=== PATIENT | female | born 1975 | race Two or more races ===

== ENCOUNTER 2017-01-28 12:08 | Inpatient (IN) | payer OTHER ==
[2017-01-28] MEDS ORDERED: ELECTROLYTE-148 SOLN 1,000 ML IV ONE (12:10)
[2017-01-28] MEDS ORDERED: CITRIC ACID/SODIUM CITRATE 30 ML UNIT-DOSE CUP PO ONE (12:10)
[2017-01-28] MEDS ORDERED: ELECTROLYTE-148 SOLN 1,000 ML IV SCH (13:10)
[2017-01-28 13:17] VITALS: BMI 29.0
--- NOTE | 2017-01-28 14:40 | HP ---
[id number] Chief Complaint: 39.2 weeks, previous c/s . ama , request of repeat c/ s History of Present Illness: 41 yo f [id number] with previous c/s requesting repeat c/s , rba discussed ,cx clp vx -3 mi, fhr cat 1 History Source: Patient Limitations to Obtaining History: Language Barrier - Past Medical History ...: 4 ...Para: 1 ...Term: 1 ...: 0 ...Spon : 1 ...Induced : 1 ...Multiple Gestation: 0 ...LMP: 04/28/16 ... Weeks Gestation by Dates: 39.2 ...EDC by Dates: 02/02/17 ...EDC by Sono: 02/02/17 - Past Surgical History Past Surgical History: Yes: Hx Myomectomy: No Hx Transabdominal Cerclage: No - Smoking History Smoking history: Never smoked Have you smoked in the past 12 months: No - Alcohol/Substance Use Hx Alcohol Use: No - Social History Usual Living Arrangement: Yes: With Spouse History of Recent Travel: No Home Medications - Allergies Allergies/Adverse Reactions: Allergies Allergy/AdvReac Type Severity Reaction Status Date / Time No Known Drug Allergies Allergy Verified 01/28/17 12:58 - Home Medications Home Medications: Ambulatory Orders Ferrous Sulfate 1 tab PO DAILY 01/28/17 Vit/Iron Fumarate/FA [ Tablet] 1 tab PO DAILY 01/28/17 Ibuprofen [Motrin -] 600 mg PO QID #28 tablet 01/31/17 Review of Systems - Review of Systems Constitutional: reports: No Symptoms Eyes: reports: No Symptoms HENT: reports: No Symptoms Neck: reports: No Symptoms Cardiovascular: reports: No Symptoms Respiratory: reports: No Symptoms Gastrointestinal: reports: No Symptoms Genitourinary: reports: No Symptoms Breasts: reports: No Symptoms Reported Musculoskeletal: reports: No Symptoms Integumentary: reports: No Symptoms Neurological: reports: No Symptoms Endocrine: reports: No Symptoms Hematology/Lymphatic: reports: No Symptoms Psychiatric: reports: No Symptoms Physical Exam - Maternity Vital Signs: Vital Signs Temperature 97.4 F L 01/28/17 12:08 Pulse Rate Respiratory Rate Blood Pressure O2 Sat by Pulse Oximetry (%) Constitutional: Yes: Well Nourished, No Distress, Calm Eyes: Yes: WNL, Conjunctiva Clear, EOM Intact HENT: Yes: WNL, Atraumatic, Normocephalic Neck: Yes: WNL, Supple, Trachea Midline Cardiovascular: Yes: WNL, Regular Rate and Rhythm Breast(s): Yes: WNL - Abdominal Exam/OB Fundal Height: 40 Number of Fetuses: Single Presentation: Vertex Contractions: No Intensity: Unaware Monitor Mode: External Heart Rate Location: [facility] Category: I Accelerations: Uniform Decelerations: None - Vaginal Exam/OB Vaginal Bleediing: No Speculum Exam: No Dilatation (cm): closed Effacement (%): 0 Amniotic Membrane Status: Intact Presentation: Vertex/Position Station: -3 - Physical Exam Edema: Yes Edema: LUE: Trace, LLE: Trace, RLE: Trace Deep Tendon Reflex Grade: Normal +2 Psychiatric: Yes: WNL Hemorrhage Risk Assessment - Risk Factors Medium Risk Factors: Yes: Prior , uterine surgery,or multiple laparotomies Risk Score: 1 Risk Level: Medium Risk Problem List - Problems (1) with 39 completed weeks gestation Code(s): Z3A.39 - 39 WEEKS GESTATION OF (2) Previous section Code(s): Z98.891 - HISTORY OF UTERINE SCAR FROM PREVIOUS SURGERY (3) Advanced maternal age (AMA) in Code(s): GZG3068 - Assessment/Plan repeat c/s rba discussed
[2017-01-28] MEDS ORDERED: IBUPROFEN 800 MG/8 ML IJ IVPB PRN ×2 (15:22→15:23)
[2017-01-28] MEDS ORDERED: METHYLERGONOVINE MALEATE 0.2 MG/1 ML AMP IM PRN (15:23)
[2017-01-28] MEDS ORDERED: WITCH HAZEL 50% (TUCKS) 40 PAD/JAR PAD TP PRN (15:23)
[2017-01-28] MEDS ORDERED: BENZOCAINE 20% 57 GM BOTTLE TP PRN (15:23)
[2017-01-28] MEDS ORDERED: BENZOCAINE 28 GM HEMORRHOIDAL OINTMENT PR PRN (15:23)
[2017-01-28] MEDS ORDERED: diphenhydrAMINE HCL 25 MG CAPSULE (FP) PO PRN (15:23)
[2017-01-28] MEDS ORDERED: OXYTOCIN 20 UNITS in 0.9% NS 1,000 ML IV SCH (15:30)
[2017-01-28] MEDS: CEFAZOLIN (PRE-DOCKED) 50 ML IVPB SCH (17:47)
[2017-01-28] MEDS: DEXTROSE 5%-LACTATED RINGERS 1,000 ML IV SCH (23:58)
[2017-01-29] MEDS: CEFAZOLIN (PRE-DOCKED) 50 ML IVPB SCH (01:52)
[2017-01-29] MEDS: DEXTROSE 5%-LACTATED RINGERS 1,000 ML IV SCH (06:05)
[2017-01-29 08:37] LABS: BASOPHIL 0.2 % (0-2.0); EOSINOPHIL 0.8 % (0-4.5); MCH 32.7 pg (25.7-33.7); MCHC 34.2 g/dl (32.0-36.0); MEAN CELL VOLUME 95.8 fl (80-96); MEAN PLT VOLUME 8.7 fl (7.5-11.1); NEUTROPHILS 77.4 % (42.8-82.8); PLATELET COUNT 158 K/MM3 (134-434); RDW 14.9 % (11.6-15.6); WHITE BLOOD COUNT 10.9 K/mm3 (4.0-10.0)
--- NOTE | 2017-01-29 09:16 | PN ---
Progress Note (short form) - Note Progress Note: pod 1 doing well, no c/o , urine clear in hogan bag, adequate out put CBC, BMP 01/29/17 07:50 Last Vital Signs Temp Pulse Resp BP Pulse Ox 98.4 F 99 H 18 117/77 100 01/29/17 09:12 01/29/17 09:12 01/29/17 09:12 01/29/17 09:12 01/28/17 16:15 abdomen soft, no distension, no cva incision dressing dry no excess vaginal bleeding or discharge no calf tenderness impression pod 1 afebrile,, urine claer plan ambulate, advance diet , pain management Problem List - Problems (1) with 39 completed weeks gestation Code(s): Z3A.39 - 39 WEEKS GESTATION OF (2) Previous section Code(s): Z98.891 - HISTORY OF UTERINE SCAR FROM PREVIOUS SURGERY (3) Advanced maternal age (AMA) in Code(s): BBZ4176 -
[2017-01-29] MEDS: ENOXAPARIN NA (PORCINE) 40 MG/0.4 ML DISP.SYRIN SQ SCH (09:59)
--- NOTE | 2017-01-29 11:57 | PN ---
Progress Note (short form) - Note Progress Note: Anesthesia POD#1 Repeat under spinal & duramorph Did well,no N/V,no pain,moving extremities well. VSS No complications seen. Ce Dunn MD.
[2017-01-29] MEDS: SIMETHICONE 80 MG TAB.CHEW (FP) PO PRN ×3 (13:03→23:49)
[2017-01-29] MEDS: IBUPROFEN 600 MG TABLET (FP) PO PRN ×2 (13:03→17:20)
[2017-01-29] MEDS: ACETAMINOPHEN 325 MG TABLET (FP) PO PRN ×3 (13:04→23:49)
[2017-01-29] MEDS ORDERED: BISACODYL 10 MG SUPP.RECT RC PRN (15:23)
--- NOTE | 2017-01-29 15:51 | OP ---
DATE OF OPERATION: 01/28/2017 PROCEDURE: Repeat low-segment transverse section. PREOPERATIVE DIAGNOSIS: , 39 weeks, previous , advanced maternal age. Request of repeat . POSTOPERATIVE DIAGNOSIS: , 39 weeks, previous , advanced maternal age. Request of repeat . SURGEON: Bebe Dunn MD OFFICE TECHNICIAN: ANGELA Womack ANESTHESIA: Spinal. ANESTHESIOLOGIST: Luciana Baez MD ESTIMATED BLOOD LOSS: 500 mL. OPERATION: Patient was taken to the operating room. After adequate spinal anesthesia, abdomen and perineum was prepped and draped. A Pfannenstiel abdominal skin incision was made. Abdominal wall was cut layer by layer until peritoneum was exposed and incised. Upon entering the abdominal cavity, the lower uterine segment was identified, the uterovesical fold of the peritoneum established. Bladder was pushed down. With the lower blade of the Hayward retractor in the pelvis, a low transverse uterine incision was made. The incision extended laterally with bandage scissor. Amniotic sac was entered, clear fluid, head delivered. Nasopharynx was suctioned, and a live baby was delivered without any difficulty. Placenta was delivered manually. Uterine cavity was cleaned of all remaining tissue. Uterine incision was closed in 2 layers, first layer with 0 Biosyn continuous suture, the second layer with 0 Biosyn imbricating the first layer. Bladder flap was closed with 0 Biosyn continuous suture. Both tubes and ovaries were checked, were normal. No active bleeding was seen. Pelvic cavity several times irrigated. No active bleeding was seen. The urine was blood-tinged. Bladder was checked. There was a clear suture line. Then, the peritoneum was closed with 0 Biosyn continuous suture. Muscles brought together with interrupted sutures of 0 Biosyn. Fascia was closed with 0-Biosyn continuous suture, subcutaneous fat interrupted suture of 0 Biosyn, and the skin was closed with cliff. Postoperative, the urine was clear in the Melissa tube. Patient tolerated the procedure well, left the OR in good condition. BEBE DUNN M.D. [id number]
[2017-01-29] MEDS: oxyCODONE HCL 5 MG TABLET PO PRN ×2 (20:02→23:50)
[2017-01-30] MEDS: IBUPROFEN 600 MG TABLET (FP) PO PRN ×3 (02:25→19:32)
--- NOTE | 2017-01-30 09:11 | PN ---
Progress Note (short form) - Note Progress Note: pod 2 doing well voids ok, CBC, BMP 01/29/17 07:50 Last Vital Signs Temp Pulse Resp BP Pulse Ox 98.7 F 98 H 18 126/78 100 01/29/17 22:00 01/29/17 22:00 01/29/17 22:00 01/29/17 22:00 01/28/17 16:15 abdomen soft, no distension, no cva incision dry. clean no calf tenderness plan ambulate, cbc in am Problem List - Problems (1) with 39 completed weeks gestation Code(s): Z3A.39 - 39 WEEKS GESTATION OF (2) Previous section Code(s): Z98.891 - HISTORY OF UTERINE SCAR FROM PREVIOUS SURGERY (3) Advanced maternal age (AMA) in Code(s): [id number] -
[2017-01-30] MEDS: ENOXAPARIN NA (PORCINE) 40 MG/0.4 ML DISP.SYRIN SQ SCH (11:21)
[2017-01-30] MEDS: FERROUS SO4 325 MG TABLET (FP) PO SCH (11:22)
[2017-01-30] MEDS: PRENATAL VITAMINS W/ FOLIC ACID TABLET (FP) PO SCH (11:23)
[2017-01-30] MEDS: ACETAMINOPHEN 325 MG TABLET (FP) PO PRN ×2 (11:24→19:31)
[2017-01-30] MEDS: SIMETHICONE 80 MG TAB.CHEW (FP) PO PRN ×2 (11:24→19:32)
[2017-01-30] MEDS: oxyCODONE HCL 5 MG TABLET PO PRN (21:07)
[2017-01-30] MEDS: SENNOSIDES/DOCUSATE COMBO (SENNA PLUS) TABLET (UD) PO PRN (21:08)
[2017-01-31] MEDS: SIMETHICONE 80 MG TAB.CHEW (FP) PO PRN ×2 (06:07→20:18)
[2017-01-31] MEDS: IBUPROFEN 600 MG TABLET (FP) PO PRN (06:07)
[2017-01-31] MEDS: oxyCODONE HCL 5 MG TABLET PO PRN ×2 (06:08→20:18)
--- NOTE | 2017-01-31 06:50 | PN ---
Post Progress Note Post Day: 3 Type of Delivery: Repeat C/S Vital Signs: Vital Signs Temperature 98.3 F 01/30/17 21:17 Pulse Rate 108 H 01/30/17 21:17 Respiratory Rate 18 01/30/17 21:17 Blood Pressure 135/77 01/30/17 21:17 O2 Sat by Pulse Oximetry (%) 100 01/28/17 16:15 Breast Exam: Yes: Soft Uterus: Yes: Fundus Firm Incision: Yes: Beverly intact Abdomen/GI: Yes: Abdomen soft Lochia: Yes: Rubra Lochia, amount: Small Extremities: Yes: Calves non-tender Perineum: Yes: Intact - Labs Labs: CBC WBC 10.9 K/mm3 (4.0-10.0) H D 01/29/17 07:50 RBC 3.39 M/mm3 (3.60-5.2) L 01/29/17 07:50 Hgb 11.1 GM/dL (10.7-15.3) 01/29/17 07:50 Hct 32.5 % (32.4-45.2) 01/29/17 07:50 MCV 95.8 fl (80-96) 01/29/17 07:50 MCHC 34.2 g/dl (32.0-36.0) 01/29/17 07:50 RDW 14.9 % (11.6-15.6) 01/29/17 07:50 Plt Count 158 K/MM3 (134-434) 01/29/17 07:50 MPV 8.7 fl (7.5-11.1) 01/29/17 07:50 Neutrophils % 77.4 % (42.8-82.8) D 01/29/17 07:50 Lymphocytes % 14.9 % (8-40) D 01/29/17 07:50 Monocytes % 6.7 % (3.8-10.2) 01/29/17 07:50 Eosinophils % 0.8 % (0-4.5) 01/29/17 07:50 Basophils % 0.2 % (0-2.0) 01/29/17 07:50 Assessment/Plan as above oob reg diet stable
[2017-01-31 08:17] LABS: BASOPHIL 0.2 % (0-2.0); EOSINOPHIL 0.9 % (0-4.5); MCH 32.9 pg (25.7-33.7); MCHC 34.2 g/dl (32.0-36.0); MEAN CELL VOLUME 96.3 fl (80-96); MEAN PLT VOLUME 8.2 fl (7.5-11.1); NEUTROPHILS 70.5 % (42.8-82.8); PLATELET COUNT 174 K/MM3 (134-434); RDW 15.2 % (11.6-15.6); WHITE BLOOD COUNT 10.2 K/mm3 (4.0-10.0)
[2017-01-31] MEDS: ENOXAPARIN NA (PORCINE) 40 MG/0.4 ML DISP.SYRIN SQ SCH (09:47)
[2017-01-31] MEDS: FERROUS SO4 325 MG TABLET (FP) PO SCH (09:47)
[2017-01-31] MEDS: PRENATAL VITAMINS W/ FOLIC ACID TABLET (FP) PO SCH (09:47)
[2017-01-31] MEDS: ACETAMINOPHEN 325 MG TABLET (FP) PO PRN ×2 (09:48→20:20)
[2017-01-31] MEDS ORDERED: oxyCODONE HCL 5 MG TABLET PO PRN (19:18)
[2017-01-31] MEDS: SENNOSIDES/DOCUSATE COMBO (SENNA PLUS) TABLET (UD) PO PRN (20:19)
[2017-01-31 22:55] VITALS: PULSE 89
[2017-02-01] MEDS: SIMETHICONE 80 MG TAB.CHEW (FP) PO PRN (03:08)
[2017-02-01] MEDS: oxyCODONE HCL 5 MG TABLET PO PRN ×2 (03:09→09:33)
[2017-02-01] MEDS: ACETAMINOPHEN 325 MG TABLET (FP) PO PRN ×2 (03:09→09:34)
[2017-02-01] MEDS: IBUPROFEN 600 MG TABLET (FP) PO PRN (04:33)
--- NOTE | 2017-02-01 08:08 | DS ---
Physical Exam-CONSULTING SYSTEMS ENGINEER Vital Signs: Vital Signs Temperature 98.3 F 01/31/17 22:00 Pulse Rate 89 01/31/17 22:00 Respiratory Rate 18 01/31/17 22:00 Blood Pressure 130/82 01/31/17 22:00 O2 Sat by Pulse Oximetry (%) 100 01/28/17 16:15 Constitutional: Yes: Well Nourished, No Distress, Calm Eyes: Yes: WNL, Conjunctiva Clear, EOM Intact HENT: Yes: WNL, Atraumatic, Normocephalic Neck: Yes: WNL, Supple, Trachea Midline Cardiovascular: Yes: WNL, Regular Rate and Rhythm Respiratory: Yes: WNL, Regular, CTA Bilaterally Gastrointestinal: Yes: WNL ...Rectal Exam: Yes: WNL Renal/: Yes: WNL Breast(s): Yes: WNL Musculoskeletal: Yes: WNL Extremities: Yes: WNL Integumentary: Yes: WNL Wound/Incision: Yes: Clean/Dry, Well Approximated, [place] Removed Neurological: Yes: WNL, Alert, Oriented ...Motor Strength: WNL Psychiatric: Yes: WNL, Alert, Oriented Labs: CBC, BMP 01/31/17 07:30 Delivery - Delivery Section: Repeat, Low Flap Transverse (no complication) Type of Anesthesia: Spinal EBL (cc): 500 Delivery, Single - Stages of Labor Date of Delivery: 01/28/17 Time of Delivery: 14:50 Time Placenta Delivered: 14:51 Placenta: Yes: Manual Removal - Condition of Thaw Shed Heater Tender/Time Recorder Present: Yes Name: Marleni Mueller Gender: Female Weight: 7 lb 12 oz Position: Right, OT Total Hours ROM (Hrs/Mins): 2 minutes - 1 Minute Total Score: 9 5 Minutes Total Score: 9 - Feeding Plan Initial Plan: Exclusive throughout hospitalization Discharge Summary Reason For Visit: C SECTION Current Active Problems Advanced maternal age (AMA) in (Acute) with 39 completed weeks gestation (Acute) Previous section (Acute) Procedures: Principal: repeat LST c/s Condition: Good - Instructions Diet, Activity, Other Instructions: regular diet, follow up [facility] 2[facility] Referrals: Francesco Cade MD [Staff Physician] - Disposition: HOME - Home Medications Comprehensive Discharge Medication List: Ambulatory Orders Ferrous Sulfate 1 tab PO DAILY 01/28/17 Vit/Iron Fumarate/FA [ Tablet] 1 tab PO DAILY 01/28/17 Ibuprofen [Motrin -] 600 mg PO QID #28 tablet 01/31/17
[2017-02-01] MEDS: ENOXAPARIN NA (PORCINE) 40 MG/0.4 ML DISP.SYRIN SQ SCH (09:26)
[2017-02-01] MEDS: FERROUS SO4 325 MG TABLET (FP) PO SCH (09:26)
[2017-02-01] MEDS: PRENATAL VITAMINS W/ FOLIC ACID TABLET (FP) PO SCH (09:26)
[2017-02-01 11:01] VITALS: BP 138/82; TEMP 98.1
--- NOTE | 2017-02-01 13:32 | PATH ---
Surgical Pathology Report Patient Name: JOHANN VALDERRAMA Med. Rec. #: [id number] /Age/Gender: 1975 (Age: 41) / F Account: [id number] Location: [facility] OBS/[employer] FORMER Taken: 01/28/2017 Received: 01/29/2017 Reported: 02/01/2017 Physicians: Francesco Cade M.D. Specimen(s) Received PLACENTA Clinical History , term 1 ( 1999), VTOP 2004, SAB 2014, fibroid uterus C/section Final Diagnosis PLACENTA, DELIVERY: FOCALLY DISRUPTED THIRD TRIMESTER PLACENTA WITH FOCAL INFARCT, MODERATE PREVILLOUS, PERIVILLOUS, AND PRECHORIONIC FIBRIN DEPOSITION, FOCAL INCREASE IN NUMBER OF SYNCYTIAL KNOTS, FOCAL CALCIFICATIONS, THREE VESSEL UMBILICAL CORD, AND PLACENTAL MEMBRANES WITH FOCAL LAMELLAR NECROSIS. Electronically Signed Shen Bolton M.D. Gross Description The specimen is received fresh, labeled "placenta" and is a 455 gram, 20.0 x 17.0 x 2.3 cm placenta with attached membranes and umbilical cord. The attached membranes are page, translucent with focal opacities and insert marginally. The umbilical cord measures 29 cm in length and averages 1.3 cm in diameter. The cord inserts eccentrically, 5 cm to the nearest margin. No true knots or strictures are identified. Cut surface of the umbilical cord reveals 3 vessels. The surface is paul-blue with fibrin deposition and appropriate caliber vessels. The maternal surface is red-brown with focal defects. Sectioning reveals a 1.9 cm in greatest dimension page lesion. The remaining placental parenchyma is red-brown and spongy. Liner Inserter sections are submitted in 4 cassettes as follows: 1-membrane rolls and umbilical cord; 2-lesion; 3-4-full thickness sections of placenta. /01/31/2017 saudi01/31/2017
== END 2017-02-01 13:10 | disposition home or self-care (01) | DRG 540 ==
LOC: JLDR 12:08 → J3W 16:42
PROVIDERS: ADMIT Obstetrics & Gynecology; ATTEND Obstetrics & Gynecology
PROC: 10D00Z1 Extraction of Products of Conception, Low, Open Approach (ICD-10-PCS; principal; 2017-01-28)
DX: O34.211 Maternal care for low transverse scar from previous cesarean delivery (principal); O09.523 Supervision of elderly multigravida, third trimester; Z3A.39 39 weeks gestation of pregnancy; Z37.0 Single live birth
CPT/HCPCS: 36415; 85025; 88307-TC